=== PATIENT | female | born 1960 | race Caucasian/White ===

== ENCOUNTER 2018-01-20 10:37 | Emergency (ER) | payer MEDICAID ==
[~2018-01-20] VITALS: Ht 167.6 cm; Wt 68.0 kg
[2018-01-20] MEDS ORDERED: LISINOPRIL 10 MG TABLET ONE (11:00)
[2018-01-20] MEDS ORDERED: ASPIRIN 325 MG TABLET ONE (11:00)
[2018-01-20] MEDS: LISINOPRIL 10 MG TABLET PO ONE (11:03)
[2018-01-20] MEDS: ASPIRIN 325 MG TABLET PO ONE (11:03)
--- NOTE | 2018-01-20 11:13 | NUR ---
PT WAS EVALUATED BY DR BARBA. PT WAS D/C TO HOME. D/C INSTRUCTIONS GIVEN TO THE PT.
[2018-01-20 11:15] VITALS: BP 151/88
== END 2018-01-20 11:16 | disposition home or self-care (01) ==
LOC: ER 10:37
DX: I10 Essential (primary) hypertension (principal)
CPT/HCPCS: 99283; A4663

== ENCOUNTER 2018-05-03 08:10 | Emergency (ER) | payer SELFPAY ==
[~2018-05-03] VITALS: Ht 172.7 cm; Wt 63.5 kg
--- NOTE | 2018-05-03 08:30 | NUR ---
pt is in room #2b. dr Chong evaluated the pt.
[2018-05-03] MEDS ORDERED: PIPERACILLIN SODIUM/TAZOBACTAM 3.375 G in IV DEXTROSE 5% 50 ML IV ONE (08:45)
[2018-05-03] MEDS ORDERED: TDAP DIPH,PERTUSS,TET VAC/PF 0.5 ML DISP.SYRIN IM ONE ×2 (08:45)
[2018-05-03] MEDS ORDERED: PIPERACILLIN/TAZOBACTAM/D5W 50 ML IV ONE (08:45)
[2018-05-03] MEDS ORDERED: VANCOMYCIN IV 1,000 MG in IV DEXTROSE 5% 250 ML IV ONE (08:45)
[2018-05-03] MEDS ORDERED: VANCOMYCIN IV 200 ML ONE (08:45)
[2018-05-03] MEDS ORDERED: SWABABLE VALVE TRANSFER SET EA MC ONE (08:57)
[2018-05-03] MEDS ORDERED: IOHEXOL 300MG/ML 100 ML INFUS..BTL ONE (08:57)
[2018-05-03] MEDS ORDERED: IV NORMAL SALINE 250 ML IV ONE (08:57)
[2018-05-03] MEDS ORDERED: HALOPERIDOL LACTATE 5 MG/1 ML VIAL IM ONE (09:00)
[2018-05-03] MEDS ORDERED: LORAZEPAM 2 MG/1 ML VIAL IV ONE (09:00)
[2018-05-03 09:09] LABS: BASOPHILS # (AUTO) 0.1 K/uL (0.0-8.0); BASOPHILS % (AUTO) 0.5 % (0.0-2.0); EOSINOPHILS # (AUTO) 0.2 K/uL (0.0-0.7); EOSINOPHILS % (AUTO) 1.1 % (0.0-7.0); HEMATOCRIT 30.5 % (31.2-41.9); HEMOGLOBIN 10.5 g/dL (10.9-14.3); LYMPHOCYTES # (AUTO) 1.6 K/uL (20.0-40.0); LYMPHOCYTES % (AUTO) 10.5 % (20.5-51.5); MEAN CORPUSCULAR HEMOGLOBIN 29.5 uug (24.7-32.8); MEAN CORPUSCULAR HGB CONC 34 g/dL (32.3-35.6); MONOCYTES % (AUTO) 6.5 % (0.0-11.0); NEUTROPHILS # (AUTO) 12.3 K/uL (1.8-8.9); NEUTROPHILS % (AUTO) 81.4 % (38.5-71.5); PLATELET COUNT (AUTO) 403 K/uL (179-408); RED BLOOD CELL COUNT(AUTO) 3.55 MIL/uL (3.63-4.92); WHITE BLOOD COUNT (AUTO) 15.1 K/uL (3.8-11.8)
[2018-05-03 09:29] LABS: CREATININE 0.7 mg/dL (0.6-1.3)
[2018-05-03] MEDS ORDERED: MORPHINE SULFATE 4 MG/1 ML DISP.SYRIN IV ONE (09:30)
[2018-05-03] MEDS ORDERED: MORPHINE SULFATE 4 MG/1 ML DISP.SYRIN ONE (09:33)
[2018-05-03 09:40] LABS: BILIRUBIN,DIRECT 0.1 mg/dL (0.0-0.2); BILIRUBIN,TOTAL 0.2 mg/dL (0.2-1.0); TOTAL PROTEIN, SERUM 7.1 g/dL (6.4-8.2)
--- NOTE | 2018-05-03 10:32 | NUR ---
DR DAHL TALKED TO DR FINN FROM [facility] . PT IS GOING TO BE TRANSFERED TO [facility] VIA [facility], TRANSFER APPROVED BY [facility] [id number].
[2018-05-03] MEDS: POTASSIUM CHLORIDE 50 ML IV SCH ×2 (10:41→11:41)
[2018-05-03] MEDS ORDERED: POTASSIUM CHLORIDE 50 ML ONE ×2 (10:46→11:36)
--- NOTE | 2018-05-03 11:07 | NUR ---
REPORT WAS GIVEN TO SIMA SCHMITT FROM [facility]. S AMBULANCE WAS CALLED TO TRANSFER PT TO [facility] ED . RADHA IS 1 HOUR. PT IS RESTING IN BED COMFORTABLY. NO S/S OF DISTRESS.
[2018-05-03] MEDS ORDERED: HYDROMORPHONE 1 MG/1 ML DISP.SYRIN IV ONE (12:15)
[2018-05-03] MEDS ORDERED: HYDROMORPHONE 1 MG/1 ML DISP.SYRIN ONE (12:18)
--- NOTE | 2018-05-03 13:17 | NUR ---
PT WAS TRANSFERED TO [facility]ED VIA BLS AMBULANCE. NO S/S OF DISTRESS AT THE TIME OF TRANSFER.
== END 2018-05-03 13:19 | disposition short-term general hospital (02) ==
LOC: ER 08:10
DX: M65.841 Other synovitis and tenosynovitis, right hand (principal); L03.011 Cellulitis of right finger; I10 Essential (primary) hypertension
CPT/HCPCS: 36415; 73201; 80048; 80076; 83605; 85025; 85730; 86850; 86900; 86901; 87040 ×2; 90471; 90715; 96365; 96366; 96368; 96375; 99285; J1170; J2270; J2543; J3370; J3480 ×2; Q9967; A4663; J7050